=== PATIENT | male | born 1975 | race Caucasian/White ===

== ENCOUNTER 2018-05-20 13:34 | Emergency (ER) | payer SELFPAY ==
[~2018-05-20] VITALS: Ht 185.4 cm; Wt 85.0 kg
[2018-05-20] MEDS ORDERED: IBUPROFEN 800MG TABLET PO ONE (15:15)
[2018-05-20 16:14] VITALS: BP 113/74
[2018-05-20] MEDS ORDERED: BACITRACIN ZINC OINT UDPKT TOP ONE (17:00)
[2018-05-20] MEDS ORDERED: TETANUS, DIPHTHERIA, PERTUSSIS VAC/PF 0.5ML (>7YR OLD) IM ONE (17:00)
== END 2018-05-20 17:01 | disposition home or self-care (01) ==
LOC: ER 13:34
DX: S50.11XA Contusion of right forearm, initial encounter (principal); S60.221A Contusion of right hand, initial encounter; W31.89XA Contact with other specified machinery, initial encounter; Y93.89 Activity, other specified; Y92.9 Unspecified place or not applicable; F17.200 Nicotine dependence, unspecified, uncomplicated; Z90.49 Acquired absence of other specified parts of digestive tract
CPT/HCPCS: 73090; 73130; 90471; 90715; 99284

== ENCOUNTER 2023-03-04 08:50 | Emergency (ER) | payer MEDICAID ==
[~2023-03-04] VITALS: Ht 188 cm; Wt 102.0 kg
[2023-03-04 09:12] VITALS: O2SAT 100
[2023-03-04] MEDS ORDERED: ISOP30DR11 EACH EAR (10:34)
[2023-03-04 10:58] VITALS: BP 132/76; PULSE 80; RESP 18; TEMP 98.6
== END 2023-03-04 11:00 | disposition home or self-care (01) ==
LOC: ER 08:50
DX: H92.03 Otalgia, bilateral (principal); F12.10 Cannabis abuse, uncomplicated
CPT/HCPCS: 99282